=== PATIENT | female | born 1940 | race Caucasian/White ===

== ENCOUNTER → 2016-07-11 | Outpatient (CLI) | payer MEDICARE ==
[~2016-07-11] MED LIST: BIOT1CAP2 PO; ESTR0.5T PO; GLUC1CAP16 PO; HYDR-3516 PO; MULT1TAB84 PO; OMEP20TA PO; OXYC1TAB35 PO; VITA10002 PO
[2016-07-11 13:02] LABS: BLOOD, URINE NEG (NEG); GLUCOSE,URINE NEG (NEG); KETONE, URINE NEG (NEG); NITRITE,URINE NEG (NEG); PH, URINE 5.5 (5.0-8.5); SQUAMOUS EPITHELIAL CELL URINE <1 /hpf (0-5); TRANSITIONAL EPI CELLS, URINE <1 /hpf; URINE COLOR LIGHT-YELLOW (YELLW/STRAW)
== END ==
LOC: PLAB 09:55
PROVIDERS: ATTEND Family Medicine
DX: R39.9 Unspecified symptoms and signs involving the genitourinary system (principal)
CPT/HCPCS: 81001; 87086

== ENCOUNTER 2016-07-18 20:41 | Inpatient (IN) | payer MEDICARE ==
[~2016-07-18] VITALS: Ht 157.5 cm; Wt 57.7 kg
[2016-07-18 20:53] VITALS: BP 135/73; PULSE 94; RESP 20; TEMP 97.2; O2SAT 97
[2016-07-18] MEDS ORDERED: HYDR-3516 PO (22:28)
[2016-07-18] MEDS ORDERED: OMEP20TA PO (22:28)
[2016-07-18] MEDS ORDERED: GLUC1CAP16 PO (22:32)
[2016-07-18] MEDS ORDERED: BIOT1CAP2 PO (22:32)
[2016-07-18] MEDS ORDERED: ESTR0.5T PO (22:32)
[2016-07-18] MEDS ORDERED: VITA10002 PO (22:32)
[2016-07-18] MEDS ORDERED: MULT1TAB84 PO (22:32)
[2016-07-18] MEDS ORDERED: SODIUM CHLOR 0.9% 1000 ML INJ 1,000 ML IV SCH (23:33)
--- NOTE | 2016-07-18 23:43 | PD ---
HPI Chief Complaint: Complaint Time Seen by Provider: 23:33 Travel History International Travel<30 days: No Contact w/Intl Traveler<30days: No Traveled to known affect area: No History of Present Illness HPI 75-year-old female presents to the emergency department for complaint of increasing left lower quadrant abdominal pain and flank pain. Patient has had intermittent symptoms 2 weeks. Patient has been seen by her primary care physician and had urinalysis performed and been on antibiotic twice. Patient has had a CAT scan that did not show evidence of kidney stone. Patient has prior history of kidney stones and says symptoms are similar. Patient's had endoscopy in the past without evidence by colonoscopy of diverticular disease. Patient denies fever or chills. Patient has had burning with urination for urination and painful urination. Patient denies any respiratory illness symptoms no chest pain no shortness of breath. No report of fall or injury. Previous hysterectomy. Patient denies other surgeries. Patient rates pain 8/ 10 in intensity. Patient is unable to identify exacerbating or alleviating factors. No lower extremity numbness tingling or weakness; no bladder or bowel dysfunction; and no saddle anesthesia. PFSH Past Medical History Narrative Medical Anemia arthritis melanoma kidney stone hysterectomy peptic ulcer disease no tobacco use no alcohol use nursing notes reviewed Anemia: Yes (GESTATIONAL) Arthritis: Yes Blood Disorders: No Cancer: Yes (SKIN: MELANOMA TWICE) Cardiovascular Problems: No Endocrine: No GERD: Yes Immune Disorder: No Kidney Stones: Yes Musculoskeletal: No Neurologic: No Psychiatric: No Reproductive: Yes Respiratory: No Ulcer: Yes (GASTRIC) Tetanus Vaccination: > 5 Years Influenza Vaccination: Yes ?: Not Menopausal: Yes : 2 Para: 2 Past Surgical History Abdominal Surgery: No AICD: No Arteriovenous Shunt: No Cardiac Surgery: No Endocrine Surgery: No Eye Surgery: Yes (BILATERAL CATARACT) Genitourinary Surgery: No Gynecologic Surgery: Yes (HYSTERECTOMY: 1990) Hysterectomy: Yes Insulin Pump: No Joint Replacement: No Oral Surgery: No Pacemaker: No Thoracic Surgery: No Social History Alcohol Use: No Tobacco Use: No Substance Use: No Allergies-Medications (Allergen,Severity, Reaction): Coded Allergies: Diflucan (Verified Allergy, Unknown, 01/24/07) Sulfa (Verified Allergy, Unknown, ULCERS IN MOUTH, 07/18/16) Reported Meds & Prescriptions Reported Meds & Active Scripts Active Reported Multivitamin Adults (Multiple Vitamins W/ Minerals) 1 Tab 1 Tab PO DAILY Glucosamine Chondroitin (Sfcnwllpqan-Cavgdcubipg-Njf C-) 1 Cap Cap 1 Cap PO DAILY Biotin 1 Mg Cap 1 Mg PO DAILY PRN Vitamin B-12 (Cyanocobalamin) 1,000 Mcg Tab 1,000 Mcg PO DAILY Estradiol 0.5 Mg Tab 0.5 Mg PO DAILY Omeprazole 20 Mg Tab 20 Mg PO DAILY Hydrocodone-Acetaminophen 5-325 mg Tab 1 Tab PO Q4H PRN Review of Systems Except as stated in HPI: all other systems reviewed are Neg General / Constitutional: No: Fever, Chills HENT: No: Congestion Cardiovascular: No: Chest Pain or Discomfort Respiratory: No: Shortness of Breath Gastrointestinal: Positive: Abdominal Pain, No: Vomiting Genitourinary: Positive: Dysuria, Flank Pain Musculoskeletal: No: Myalgias, Arthralgias Skin: No Rash Neurologic: No: Weakness, Dizziness Psychiatric: No: Anxiety Endocrine: No: Polyuria Hematologic/Lymphatic: No: Lymph Node Enlargement Physical Exam Narrative GENERAL: Well-developed well-nourished female in no acute distress no respiratory distress SKIN: Warm and dry. HEAD: Normocephalic. EYES: No scleral icterus. No injection or drainage. NECK: Supple, trachea midline. No JVD or lymphadenopathy. CARDIOVASCULAR: Regular rate and rhythm without murmurs, gallops, or rubs. RESPIRATORY: Breath sounds equal bilaterally. No accessory muscle use. GASTROINTESTINAL: Abdomen soft, diffusely tender left upper quadrant left lower quadrant without guarding or rebound, nondistended. MUSCULOSKELETAL: No cyanosis, or edema. BACK: Nontender without obvious deformity. Left-sided CVA tenderness. No point tenderness along the thoracic or lumbar spine. Negative straight-leg raising. Deep tendon reflexes 2+ and equal bilateral lower extremities without clonus. Sensory exam grossly intact. Motor strength 5 over 5. Data Data Last Documented VS Vital Signs Date Time Temp Pulse Resp B/P Pulse Ox O2 Delivery O2 Flow Rate FiO2 07/19/16 03:14 78 16 96 Room Air 07/19/16 01:18 142/60 07/18/16 20:53 97.2 Orders Complete Blood Count With Diff (07/18/16 23:33) Comprehensive Metabolic Panel (07/18/16 23:33) Lipase (07/18/16 23:33) Lactic Acid (07/18/16 23:33) Urinalysis - C+S If Indicated (07/18/16 23:33) Iv Access Insert/Monitor (07/18/16 23:33) Ecg Monitoring (07/18/16 23:33) Oximetry (07/18/16 23:33) Morphine Inj (Morphine Inj) (07/18/16 23:45) Ondansetron Inj (Zofran Inj) (07/18/16 23:45) Sodium Chlor 0.9% 1000 Ml Inj (Ns 1000 M (07/18/16 23:33) Sodium Chloride 0.9% Flush (Ns Flush) (07/18/16 23:45) Urine Culture (07/18/16 23:50) Hydromorphone Pf Inj (Dilaudid Pf Inj) (07/19/16 01:15) Ondansetron Inj (Zofran Inj) (07/19/16 01:15) Ct Abd/Pel W Iv Contrast(Rout) (07/19/16 ) Iohexol 350 Inj (Omnipaque 350 Inj) (07/19/16 01:51) Ketorolac Inj (Toradol Inj) (07/19/16 03:00) Hydromorphone Pf Inj (Dilaudid Pf Inj) (07/19/16 03:00) Ceftriaxone Inj (Rocephin Inj) (07/19/16 03:00) Ondansetron Inj (Zofran Inj) (07/19/16 03:00) Admit To Inpatient (07/19/16 ) Vital Signs (Adult) Q4H (07/19/16 04:05) Activity Oob With Assistance (07/19/16 04:05) Media Liaison Officer / Telemetry .CONTINUOUS (07/19/16 04:05) Diet Npo (07/19/16 Breakfast) Sodium Chloride 0.9% Flush (Ns Flush) (07/19/16 04:15) Sodium Chloride 0.9% Flush (Ns Flush) (07/19/16 09:00) Basic Metabolic Panel (Bmp) (07/20/16 06:00) Complete Blood Count With Diff (07/20/16 06:00) Pt Request For Service (07/19/16 04:05) Case Management Consult (07/19/16 04:05) Scd Bilateral/Knee High NICHO.BID (07/19/16 04:05) Naloxone Inj (Narcan Inj) (07/19/16 04:15) Inpatient Certification (07/19/16 ) Hydromorphone Pf Inj (Dilaudid Pf Inj) (07/19/16 04:15) Levofloxacin 750 Mg Premix Inj (Levaquin (07/19/16 09:00) Admit Order (Ed Use Only) (07/19/16 ) ^ Saline Lock (07/19/16 04:11) Resp Oxygen Tray C Titrat 1-4 L (07/19/16 ) ^ Notify Dr: Other (07/19/16 04:11) Sodium Chloride 0.9% Flush (Ns Flush) (07/19/16 09:00) Sodium Chloride 0.9% Flush (Ns Flush) (07/19/16 04:15) ^ Notify Upon Admission (07/19/16 04:11) Consult Urology (07/19/16 ) Labs Laboratory Tests Test 07/18/16 07/18/16 23:40 23:50 White Blood Count 14.7 TH/MM3 Red Blood Count 4.17 MIL/MM3 Hemoglobin 12.6 GM/DL Hematocrit 37.0 % Mean Corpuscular Volume 89.0 FL Mean Corpuscular Hemoglobin 30.3 PG Mean Corpuscular Hemoglobin 34.1 % Concent Red Cell Distribution Width 12.1 % Platelet Count 196 TH/MM3 Mean Platelet Volume 9.2 FL Neutrophils (%) (Auto) 86.0 % Lymphocytes (%) (Auto) 6.1 % Monocytes (%) (Auto) 4.0 % Eosinophils (%) (Auto) 0.6 % Basophils (%) (Auto) 3.3 % Neutrophils # (Auto) 12.6 TH/MM3 Lymphocytes # (Auto) 0.9 TH/MM3 Monocytes # (Auto) 0.6 TH/MM3 Eosinophils # (Auto) 0.1 TH/MM3 Basophils # (Auto) 0.5 TH/MM3 CBC Comment DIFF FINAL Differential Comment Sodium Level 141 MEQ/L Potassium Level 3.6 MEQ/L Chloride Level 106 MEQ/L Carbon Dioxide Level 25.2 MEQ/L Anion Gap 10 MEQ/L Blood Urea Nitrogen 19 MG/DL Creatinine 0.97 MG/DL Estimat Glomerular Filtration 56 ML/MIN Rate Random Glucose 123 MG/DL Lactic Acid Level 1.2 mmol/L Calcium Level 8.6 MG/DL Total Bilirubin 0.6 MG/DL Aspartate Amino Transf 19 U/L (AST/SGOT) Alanine Aminotransferase 18 U/L (ALT/SGPT) Alkaline Phosphatase 73 U/L Total Protein 7.2 GM/DL Albumin 3.8 GM/DL Lipase 102 U/L Urine Collection Type CLEAN CATCH Urine Color YELLOW Urine Turbidity CLEAR Urine pH 6.0 Urine Specific [place] 1.023 Urine Protein NEG mg/dL Urine Glucose (UA) NEG mg/dL Urine Ketones 40 mg/dL Urine Occult Blood TRACE Urine Nitrite NEG Urine Bilirubin NEG Urine Leukocyte Esterase TRACE Urine WBC 15-19 /hpf Urine WBC Clumps OCC Urine Squamous Epithelial 0-5 /hpf Cells Urine Hyaline Casts 0-2 /lpf Urine Mucus FEW /lpf Microscopic Urinalysis Comment CULTURE INDICATED MDM Medical Decision Making Medical Screen Exam Complete: Yes Emergency Medical Condition: Yes Medical Record Reviewed: Yes Interpretation(s) CBC & BMP Diagram 07/18/16 23:40 Last Impressions Abdomen/Pelvis CT 07/19/16 0000 Signed Impressions: Service Date/Time: Tuesday, July 19, 2016 01:33 - CONCLUSION: 1. Left sided hydronephrosis, perinephric fluid and hydroureter secondary to an obstructing calculus at the left ureterovesical junction. 2. Atherosclerosis. 3. Indeterminate low-density lesion in the right lobe of the liver, likely a hemangioma. This can be further evaluated on a nonemergent outpatient basis with MRI of the abdomen. Josef Kothari MD UA: positive leuk esterase and wbc's Differential Diagnosis Flank pain UTI pyelonephritis renal colic diverticulitis colitis ischemic colitis musculoskeletal pain Narrative Course IV access obtained specimens collected and sent for resulting Urinalysis with white blood cells patient recently being treated for urinary tract infection with outpatient antibiotic; patient administered iv rocephin x 1 dose; no fever no chills CT abdomen and pelvis ordered in view of leukocytosis along with persistent left lower quadrant and flank pain to evaluate between colitis diverticulitis and obstructive uropathy also evaluate for pyelonephritis Patient identified to have an 8 millimeter distal ureteral stone with hydronephrosis and hydroureter; plan to admit patient for management of intractable pain with obstructive uropathy --- case discussed with on-call urology --- patient will require admission with recommendation for transfer to [facility] as may require procedural intervention. Patient has received IV antibiotics IV pain medication and medicine for nausea vomiting. Patient's case discussed with on-call medicine for admission and will accept to [facility] with urology consult. patient aware of plan and agreeable with transfer Physician Communication Physician Communication discussed with [facility] MD and transmission rebuilder urology Diagnosis Primary Impression: Ureterolithiasis Additional Impressions: Hydronephrosis Qualified Code: N13.2 - Hydronephrosis with urinary obstruction due to renal calculus UTI (urinary tract infection) Admitting Information Admitting Physician Requests: Admit Jacinta Gimenez MD Jul 18, 2016 23:43
[2016-07-18] MEDS ORDERED: SODIUM CHLORIDE 0.9% FLUSH 5 ML FLUSH IVF PRN (23:45)
[2016-07-18] MEDS ORDERED: ONDANSETRON HCL 4 MG/2 ML VIAL IVP ONE (23:45)
[2016-07-18] MEDS ORDERED: MORPHINE SULFATE 4 MG/ML INJ IV PUSH ONE (23:45)
[2016-07-19] VITALS (9 sets, daily range): BP systolic 106–144; BP diastolic 55–64; PULSE 57–84; RESP 16–18; TEMP 97.6–99; O2SAT 96–99
[2016-07-19 00:01] LABS: AUTOMATED NEUTROPHIL # 12.6 TH/MM3 (1.8-7.7); BASOPHIL # 0.5 TH/MM3 (0-0.2); BASOPHIL % 3.3 % (0.0-2.0); EOSINOPHIL # 0.1 TH/MM3 (0-0.4); EOSINOPHIL % 0.6 % (0.0-4.0); LYMPH % 6.1 % (9.0-44.0); LYMPHOCYTE # 0.9 TH/MM3 (1.0-4.8); MEAN CORPUSCULAR HEMOGLOBIN 30.3 PG (27.0-34.0); MEAN CORPUSCULAR HGB CONC 34.1 % (32.0-36.0); PLATELET COUNT 196 TH/MM3 (150-450); RED BLOOD COUNT 4.17 MIL/MM3 (4.00-5.30); RED CELL DISTRIBUTION WIDTH 12.1 % (11.6-17.2); WHITE BLOOD COUNT 14.7 TH/MM3 (4.0-11.0)
[2016-07-19 00:03] LABS: HEMO FLAGS DIFF FINAL
[2016-07-19 00:10] LABS: CHLORIDE 106 MEQ/L (98-107); POTASSIUM 3.6 MEQ/L (3.5-5.1); SODIUM (NA) 141 MEQ/L (136-145)
[2016-07-19 00:13] LABS: ANION GAP 10 MEQ/L (5-15); BICARBONATE 25.2 MEQ/L (21.0-32.0)
[2016-07-19 00:13] LABS: BLOOD, URINE TRACE (NEG); GLUCOSE,URINE NEG (NEG); KETONE, URINE 40 mg/dL (NEG); NITRITE,URINE NEG (NEG)
[2016-07-19 00:14] LABS: BLOOD UREA NITROGEN 19 MG/DL (7-18)
[2016-07-19 00:16] LABS: ALT (GPT) 18 U/L (10-53); AST (GOT) 19 U/L (15-37)
[2016-07-19 00:17] LABS: GLOMERULAR FILTRATION RATE 56 ML/MIN (>89)
[2016-07-19 00:18] LABS: TOTAL BILIRUBIN ADULT 0.6 MG/DL (0.2-1.0)
[2016-07-19 00:19] LABS: ALKALINE PHOSPHATASE 73 U/L (45-117)
[2016-07-19 00:32] LABS: HYALINE CAST, URINE 0-2 /lpf (RARE); METHOD OF COLLECTION CLEAN CATCH; MUCUS URINE FEW /lpf (OCC); URINE COLOR YELLOW (YELLW/STRAW)
[2016-07-19 00:33] LABS: SQUAMOUS EPITHELIAL CELL URINE 0-5 /hpf (0-5); WBC, URINE 15-19 /hpf (0-5)
[2016-07-19 00:34] LABS: COMMENT (UR) CULTURE INDICATED; CULTURE IF INDICATED CULTURE INDICATED
[2016-07-19] MEDS ORDERED: ONDANSETRON HCL 4 MG/2 ML VIAL IV PUSH ONE ×3 (01:15→12:00)
[2016-07-19] MEDS ORDERED: HYDROmorphone HCL PF 1 MG/ML VIAL IV PUSH ONE ×2 (01:15→03:00)
[2016-07-19] MEDS ORDERED: IOHEXOL 350 MG/ML 10 ML VIAL (for RAD DIAG) IV ONE (01:51)
--- NOTE | 2016-07-19 02:00 | RADHPO ---
EXAM DATE/TIME: 07/19/2016 01:33 [place] COMPARISON: No previous studies available for comparison. INDICATIONS : Left lower quadrant and flank pain for two weeks. IV CONTRAST: 75 cc Omnipaque 350 (iohexol) IV ORAL CONTRAST: No oral contrast ingested. RADIATION DOSE: 5.99 CTDIvol (mGy) MEDICAL HISTORY : Gastroesophageal reflux disease. SURGICAL HISTORY : Hysterectomy. ENCOUNTER: Initial ACUITY: 2 weeks PAIN SCALE: 6/10 LOCATION: Left lower quadrant flank TECHNIQUE: Volumetric scanning of the abdomen and pelvis was performed. Using automated exposure control and ad justment of the mA and/or kV according to patient size, radiation dose was kept as low as reasonably achievable to obtain optimal diagnostic quality images. FINDINGS: There is an indeterminate low density mass in the right lobe of the liver measuring 1.8 cm. Gallbladd er, spleen, pancreas, bilateral adrenal glands, right kidney are unremarkable. Gallbladder unremarkab le. There is perinephric fluid on the left, mild decreased enhancement of the left kidney relative to the right and moderate hydronephrosis and hydroureter identified. There is a calculus at the left ur eterovesical junction measuring 8.1 mm. There is no evidence for bowel obstruction. Stomach unremarka ble. Atherosclerotic calcifications of the aorta and iliac vessels are seen. Lung bases are clear. Os seous structures are intact. CONCLUSION: 1. Left sided hydronephrosis, perinephric fluid and hydroureter secondary to an obstructing calculus at the left ureterovesical junction. 2. Atherosclerosis. 3. Indeterminate low-density lesion in the right lobe of the liver, likely a hemangioma. This can be further evaluated on a nonemergent outpatient basis with MRI of the abdomen. Josef Kothari MD on July 19, 2016 at 1:56 Board Certified Radiologist. This report was verified electronically.
[2016-07-19] MEDS ORDERED: cefTRIAXone INJ 1,000 MG in SODIUM CHLORIDE 0.9% INJ 100 ML IV ONE (03:00)
[2016-07-19] MEDS ORDERED: KETOROLAC TROMETHAMINE 30 MG/ML (IVP) VIAL IV PUSH ONE (03:00)
[2016-07-19] MEDS ORDERED: SODIUM CHLORIDE 0.9% FLUSH 5 ML FLUSH IVF PRN (04:15)
[2016-07-19] MEDS ORDERED: SODIUM CHLORIDE 0.9% FLUSH 5 ML FLUSH FLUSH PRN (04:15)
[2016-07-19] MEDS ORDERED: NALOXONE HCL 0.4 MG/ML AMP IV PRN (04:15)
[2016-07-19] MEDS: LEVOFLOXACIN 750 MG PREMIX INJ 150 ML IV SCH (08:52)
[2016-07-19] MEDS: SODIUM CHLORIDE 0.9% FLUSH 5 ML FLUSH FLUSH SCH ×2 (08:53→20:45)
[2016-07-19] MEDS ORDERED: SODIUM CHLORIDE 0.9% FLUSH 5 ML FLUSH IVF SCH (09:00)
[2016-07-19] MEDS: SODIUM CHLOR 0.9% 1000 ML INJ 1,000 ML IV SCH ×2 (10:37→20:45)
[2016-07-19] MEDS ORDERED: PROPOFOL 200 MG/20 ML AMP IV ONE (12:00)
[2016-07-19] MEDS ORDERED: LACTATED RINGER'S 1000 ML INJ 1,000 ML IV ONE (12:00)
[2016-07-19] MEDS ORDERED: ePHEDrine/NS 25 MG/5 ML SYR IV ONE (12:00)
[2016-07-19] MEDS: HYDROmorphone HCL PF 1 MG/ML VIAL IV PUSH PRN (13:26)
[2016-07-19] MEDS ORDERED: INSULIN HUMAN REGULAR 1,000 UNITS/10 ML VIAL SQ PRN (15:45)
[2016-07-19] MEDS: SODIUM CHLORID 0.9% 500 ML IV SCH (15:45)
[2016-07-19] MEDS ORDERED: METOPROLOL TARTRATE 25 MG TAB PO PRN (15:45)
[2016-07-19] MEDS ORDERED: LACTATED RINGER'S 1000 ML IV SCH (15:45)
--- NOTE | 2016-07-19 16:23 | EKG ---
Date Performed: 07/19/2016 Time Performed: 16:13:34 PTAGE: 75 years EKG: Sinus rhythm WITH FREQUENT SUPRAVENTRICULAR PREMATURE COMPLEXES ABNORMAL RHYTHM ECG COMPARED TO PRIOR ELECTROCARD IOGRAM, Premature atrial contractions are present. PREVIOUS TRACING : 01/28/2007 08.50 DOCTOR: Chano Youngblood Interpretating Date/Time 07/19/2016 16:22:05
--- NOTE | 2016-07-19 19:18 | PD.CONS ---
HPI Service Urology Consult Requested By Reason for Consult Nephrolithiasis Primary Care Physician Kevin Luciano MD Diagnosis: History of Present Illness 75yo female with history of nephrolithiasis now admitted for a left distal ureteral stone resulting in obstruction and signifcant flank pain. Patient reports her pain began yesterday with severe left flank pain. No fevers. She has had stoned in the past, but passed without intervention. Denies fevers. Review of Systems ROS Limitations: Clinical Condition Constitutional: DENIES: Fever Eyes: DENIES: Vision loss Ears, nose, mouth, throat: DENIES: Hearing loss Respiratory: DENIES: Cough Cardiovascular: DENIES: Chest pain Gastrointestinal: DENIES: Abdominal pain Genitourinary: DENIES: Hematuria Musculoskeletal: COMPLAINS OF: Back pain Integumentary: DENIES: Abnormal pigmentation Neurologic: DENIES: Headache Psychiatric: DENIES: Anxiety Past Family Social History Past Medical History Nephrolithiasis Past Surgical History No known past surgical history Reported Medications Reported Meds & Active Scripts Active Reported Multivitamin Adults (Multiple Vitamins W/ Minerals) 1 Tab 1 Tab PO DAILY Glucosamine Chondroitin (Dfmedoqecjm-Wyhpurqfjzi-Auh C-) 1 Cap Cap 1 Cap PO DAILY Biotin 1 Mg Cap 1 Mg PO DAILY PRN Vitamin B-12 (Cyanocobalamin) 1,000 Mcg Tab 1,000 Mcg PO DAILY Estradiol 0.5 Mg Tab 0.5 Mg PO DAILY Omeprazole 20 Mg Tab 20 Mg PO DAILY Hydrocodone-Acetaminophen 5-325 mg Tab 1 Tab PO Q4H PRN Allergies: Coded Allergies: Diflucan (Verified Allergy, Unknown, 01/24/07) Sulfa (Verified Allergy, Unknown, ULCERS IN MOUTH, 07/18/16) Active Ordered Medications Current Medications Medications (Trade) Dose Ordered Sig/Angelica Route Start Time Stop Time Status Last Admin (NS Flush) 2 ml UNSCH PRN FLUSH 07/19/16 04:15 (NS Flush) 2 ml BID FLUSH 07/19/16 09:00 07/19/16 08:53 (Narcan Inj) 0.4 mg UNSCH PRN IV 07/19/16 04:15 Hydromorphone HCl 0.5 mg 0.5 mg Q4H PRN IV PUSH 07/19/16 04:15 07/19/16 13:26 Levofloxacin/ Dextrose 150 ml @ 100 mls/hr Q24H IV 07/19/16 09:00 07/19/16 08:52 Sodium Chloride 1,000 ml @ 100 mls/hr Q10H IV 07/19/16 10:15 07/19/16 10:37 Lactated Ringer's 1,000 ml @ 30 mls/hr Q24H IV 07/19/16 15:45 07/19/16 15:30 (NS 500 ml Inj) 500 ml @ 30 mls/hr [id number] IV 07/19/16 15:45 07/20/16 15:44 Family History Family history reviewed an noncontributory to present illness Social History NO Tobacco use No ETOH Physical Exam Vital Signs Vital Signs Date Time Temp Pulse Resp B/P Pulse Ox O2 Delivery O2 Flow Rate FiO2 07/19/16 18:30 99.0 60 18 136/62 96 07/19/16 15:18 98.1 54 16 118/53 97 07/19/16 14:00 14 07/19/16 11:30 57 16 126/56 99 07/19/16 07:42 97.6 62 16 106/55 97 07/19/16 06:00 96 21 07/19/16 04:59 75 16 128/63 96 Room Air 07/19/16 03:14 78 16 96 Room Air 07/19/16 01:18 80 16 142/60 97 Room Air 07/19/16 00:08 83 18 144/64 98 Room Air 07/18/16 20:53 97.2 94 20 135/73 97 Physical Exam GENERAL: This is a well-nourished, well-developed patient, in no apparent distress. SKIN: No rashes, ecchymoses or lesions. Cool and dry. HEAD: Atraumatic. Normocephalic. EYES: Extraocular motions intact. No scleral icterus. No injection or drainage. ENT: Nose without bleeding, purulent drainage. Airway patent. NECK: Trachea midline. CARDIOVASCULAR: Extremities well perfused, normal pulse RESPIRATORY: nonlabored, equal chest rise GASTROINTESTINAL: Abdomen soft, non-tender, nondistended. Mild left flank pain MUSCULOSKELETAL: Extremities without clubbing, cyanosis, or edema. NEUROLOGICAL: Awake and alert. Motor and sensory grossly within normal limits. Normal speech. Laboratory Laboratory Tests Test 07/18/16 07/18/16 23:40 23:50 White Blood Count 14.7 Red Blood Count 4.17 Hemoglobin 12.6 Hematocrit 37.0 Mean Corpuscular Volume 89.0 Mean Corpuscular Hemoglobin 30.3 Mean Corpuscular Hemoglobin 34.1 Concent Red Cell Distribution Width 12.1 Platelet Count 196 Mean Platelet Volume 9.2 Neutrophils (%) (Auto) 86.0 Lymphocytes (%) (Auto) 6.1 Monocytes (%) (Auto) 4.0 Eosinophils (%) (Auto) 0.6 Basophils (%) (Auto) 3.3 Neutrophils # (Auto) 12.6 Lymphocytes # (Auto) 0.9 Monocytes # (Auto) 0.6 Eosinophils # (Auto) 0.1 Basophils # (Auto) 0.5 CBC Comment DIFF FINAL Differential Comment Sodium Level 141 Potassium Level 3.6 Chloride Level 106 Carbon Dioxide Level 25.2 Anion Gap 10 Blood Urea Nitrogen 19 Creatinine 0.97 Estimat Glomerular Filtration 56 Rate Random Glucose 123 Lactic Acid Level 1.2 Calcium Level 8.6 Total Bilirubin 0.6 Aspartate Amino Transf 19 (AST/SGOT) Alanine Aminotransferase 18 (ALT/SGPT) Alkaline Phosphatase 73 Total Protein 7.2 Albumin 3.8 Lipase 102 Urine Collection Type CLEAN CATCH Urine Color YELLOW Urine Turbidity CLEAR Urine pH 6.0 Urine Specific [place] 1.023 Urine Protein NEG Urine Glucose (UA) NEG Urine Ketones 40 Urine Occult Blood TRACE Urine Nitrite NEG Urine Bilirubin NEG Urine Leukocyte Esterase TRACE Urine WBC 15-19 Urine WBC Clumps OCC Urine Squamous Epithelial 0-5 Cells Urine Hyaline Casts 0-2 Urine Mucus FEW Microscopic Urinalysis Comment CULTURE INDICATED Date/Time Procedure Status Source Growth 07/18/16 23:50 Urine Culture - Preliminary Resulted Urine Clean Catch NO GROWTH IN 24 HOURS. Result Diagram: 07/18/16 2340 07/18/16 2340 Imaging Last 48 hours Impressions Abdomen/Pelvis CT 07/19/16 0000 Signed Impressions: Service Date/Time: Tuesday, July 19, 2016 01:33 - CONCLUSION: 1. Left sided hydronephrosis, perinephric fluid and hydroureter secondary to an obstructing calculus at the left ureterovesical junction. 2. Atherosclerosis. 3. Indeterminate low-density lesion in the right lobe of the liver, likely a hemangioma. This can be further evaluated on a nonemergent outpatient basis with MRI of the abdomen. Josef Kothari MD Assessment and Plan Problem List: (1) Ureterolithiasis ICD Code: N20.1 Status: Acute (2) Hydronephrosis ICD Code: N13.30 Status: Acute Assessment and Plan -Left obstrucitng distal ureteral stone -To the OR for left ureteral stent placement Problem Qualifiers (1) Hydronephrosis: Qualified Code: N13.2 - Hydronephrosis with urinary obstruction due to renal calculus Trace Bolton MD Jul 19, 2016 19:18
[2016-07-19] MEDS ORDERED: ceFAZolin INJ 1,000 MG VIAL IV ONE (19:31)
[2016-07-19] MEDS ORDERED: IOHEXOL 300 MG/ML 50 ML BTL (for RAD DIAG) ONE (19:33)
--- NOTE | 2016-07-19 20:08 | HHI.PR ---
Subjective Remarks Difficult left ureteral stent placement. Successful placement of a 6x24 JJ left ureteral stent. Stent is to remain in place until Urology follow-up in 1-2 weeks for definitive stone management. Patient is clear for discharge from urology standpoint when stable from medical perspective. Objective Vital Signs Vital Signs Date Time Temp Pulse Resp B/P Pulse Ox O2 Delivery O2 Flow Rate FiO2 07/19/16 18:30 99.0 60 18 136/62 96 07/19/16 15:18 98.1 54 16 118/53 97 07/19/16 14:00 14 07/19/16 11:30 57 16 126/56 99 07/19/16 07:42 97.6 62 16 106/55 97 07/19/16 06:00 96 21 07/19/16 04:59 75 16 128/63 96 Room Air 07/19/16 03:14 78 16 96 Room Air 07/19/16 01:18 80 16 142/60 97 Room Air 07/19/16 00:08 83 18 144/64 98 Room Air 07/18/16 20:53 97.2 94 20 135/73 97 I/O 07/18/16 07/18/16 07/18/16 07/19/16 07/19/16 07/19/16 07:00 15:00 23:00 07:00 15:00 23:00 Intake Total 100 ml 1150 ml 250 ml Output Total 250 ml 1200 ml Balance -150 ml -50 ml 250 ml Intake IV Total 100 ml 1150 ml 250 ml Output Urine Total 250 ml 1200 ml # Voids 2 2 Result Diagram: 07/18/16 2340 07/18/16 2340 Imaging Last 48 hours Impressions Abdomen/Pelvis CT 07/19/16 0000 Signed Impressions: Service Date/Time: Tuesday, July 19, 2016 01:33 - CONCLUSION: 1. Left sided hydronephrosis, perinephric fluid and hydroureter secondary to an obstructing calculus at the left ureterovesical junction. 2. Atherosclerosis. 3. Indeterminate low-density lesion in the right lobe of the liver, likely a hemangioma. This can be further evaluated on a nonemergent outpatient basis with MRI of the abdomen. Josef Kothari MD Assessment and Plan Problem List: (1) Ureterolithiasis ICD Code: N20.1 Status: Acute (2) Hydronephrosis ICD Code: N13.30 Status: Acute Assessment and Plan -Successful left ureteral stent placement -Follow-up with Urology, Che, in 1-2 weeks for definitive stone management -Clear for discharge from Urology standpoint Problem Qualifiers (1) Hydronephrosis: Qualified Code: N13.2 - Hydronephrosis with urinary obstruction due to renal calculus Trace Bolton MD Jul 19, 2016 20:07
[2016-07-19] MEDS ORDERED: DO NOT ADM ANY ANTICOAGULANT DRUGS XX PRN (21:00)
[2016-07-20 04:36] VITALS: BP 115/55; PULSE 69; RESP 18; TEMP 98; O2SAT 96
[2016-07-20] MEDS: SODIUM CHLOR 0.9% 1000 ML INJ 1,000 ML IV SCH ×2 (05:23→07:46)
[2016-07-20 06:25] LABS: BASOPHIL % 0.1 % (0.0-2.0); EOSINOPHIL % 0.1 % (0.0-4.0); HEMATOCRIT 33.2 % (35.0-46.0); HEMO FLAGS DIFF FINAL; LYMPH % 10.1 % (9.0-44.0); LYMPHOCYTE # 0.7 TH/MM3 (1.0-4.8); MEAN CELL VOLUME 90.2 FL (80.0-100.0); MEAN CORPUSCULAR HEMOGLOBIN 30.7 PG (27.0-34.0); MONO % 3.1 % (0.0-8.0); NEUT % 86.6 % (16.0-70.0); PLATELET COUNT 167 TH/MM3 (150-450); RED BLOOD COUNT 3.68 MIL/MM3 (4.00-5.30); RED CELL DISTRIBUTION WIDTH 12.8 % (11.6-17.2); WHITE BLOOD COUNT 6.9 TH/MM3 (4.0-11.0)
[2016-07-20 06:47] LABS: BICARBONATE 23.6 MEQ/L (21.0-32.0); POTASSIUM 3.4 MEQ/L (3.5-5.1)
[2016-07-20] MEDS: LEVOFLOXACIN 750 MG PREMIX INJ 150 ML IV SCH (07:45)
[2016-07-20 08:00] VITALS: BP 148/63; PULSE 56; RESP 18; TEMP 98; O2SAT 96
[2016-07-20] MEDS: HYDROmorphone HCL PF 1 MG/ML VIAL IV PUSH PRN (08:14)
[2016-07-20 08:20] VITALS: PULSE 65
[2016-07-20] MEDS: SODIUM CHLORID 0.9% 500 ML IV SCH (08:25)
--- NOTE | 2016-07-20 08:43 | HHI.HP ---
[facility] Service [place] [facility] Primary Care Physician Kevin Luciano MD Admission Diagnosis Intractable pain; 8mm ureterolithiasis w/obstruction Diagnoses: Chief Complaint: Abdominal pain Travel History International Travel<30 Days: No Contact w/Intl Traveler <30 Da: No Traveled to Known Affected Are: No History of Present Illness 75-year-old female with a history of kidney stones who presented to the emergency room with complaint of left lower quadrant and left flank pain. Patient reports the symptom has been present for about 2-3 weeks but became worse over the past couple of days which prompted the visit to emergency room. She described the pain as the worse pain she's ever had. She has been having some dysuria as well but denies hematuria. Workup in the emergency room revealed an obstructing stone and left-sided hydronephrosis. The patient was admitted for urological intervention. She denied any fevers or chills. Review of Systems Constitutional: DENIES: Fever, Chills Gastrointestinal: COMPLAINS OF: Abdominal pain Genitourinary: COMPLAINS OF: Dysuria, DENIES: Hematuria Other All other systems reviewed and are negative. Past Family Social History Past Medical History Previous kidney stone GERD Osteoarthritis Melanoma status post resection. Past Surgical History Hysterectomy Reported Medications Reported Meds & Active Scripts Active Oxycodone-Acetaminophen 7.5-325 mg Tab 1 Tab PO Q4H PRN Reported Multivitamin Adults (Multiple Vitamins W/ Minerals) 1 Tab 1 Tab PO DAILY Glucosamine Chondroitin (Ypoeumcbfqi-Wtilqluahrg-Nxd C-) 1 Cap Cap 1 Cap PO DAILY Biotin 1 Mg Cap 1 Mg PO DAILY PRN Vitamin B-12 (Cyanocobalamin) 1,000 Mcg Tab 1,000 Mcg PO DAILY Estradiol 0.5 Mg Tab 0.5 Mg PO DAILY Omeprazole 20 Mg Tab 20 Mg PO DAILY Allergies: Coded Allergies: Diflucan (Verified Allergy, Unknown, 01/24/07) Sulfa (Verified Allergy, Unknown, ULCERS IN MOUTH, 07/18/16) Family History Reviewed and noncontributory. Physical Exam Vital Signs Vital Signs Date Time Temp Pulse Resp B/P Pulse Ox O2 Delivery O2 Flow Rate FiO2 07/20/16 04:36 98.0 69 18 115/55 96 07/19/16 21:00 98.5 83 16 140/60 100 Nasal Cannula 2 07/19/16 20:30 84 15 128/62 100 Nasal Cannula 2 07/19/16 20:11 98.5 96 18 138/78 100 Nasal Cannula 2 07/19/16 20:00 84 07/19/16 20:00 97.8 63 18 130/63 96 07/19/16 18:30 99.0 60 18 136/62 96 07/19/16 15:18 98.1 54 16 118/53 97 07/19/16 14:00 14 07/19/16 11:30 57 16 126/56 99 Physical Exam GENERAL: This is a well-nourished, well-developed patient, in no apparent distress. SKIN: No rashes, ecchymoses or lesions. Cool and dry. HEAD: Atraumatic. Normocephalic. No temporal or scalp tenderness. EYES: Pupils equal round and reactive. Extraocular motions intact. No scleral icterus. No injection or drainage. ENT: Nose without bleeding, purulent drainage or septal hematoma. Throat without erythema, tonsillar hypertrophy or exudate. Uvula midline. Airway patent. NECK: Trachea midline. No JVD or lymphadenopathy. Supple, nontender, no meningeal signs. CARDIOVASCULAR: Regular rate and rhythm without murmurs, gallops, or rubs. RESPIRATORY: Clear to auscultation. Breath sounds equal bilaterally. No wheezes , rales, or rhonchi. GASTROINTESTINAL: Abdomen soft, non-tender, nondistended. No hepato-splenomegaly , or palpable masses. No guarding. MUSCULOSKELETAL: Extremities without clubbing, cyanosis, or edema. No joint tenderness, effusion, or edema noted. No calf tenderness. Negative Homans sign bilaterally. NEUROLOGICAL: Awake and alert. Cranial nerves II through XII intact. Motor and sensory grossly within normal limits. Five out of 5 muscle strength in all muscle groups. Normal speech. Laboratory Laboratory Tests Test 07/20/16 05:01 White Blood Count 6.9 Red Blood Count 3.68 Hemoglobin 11.3 Hematocrit 33.2 Mean Corpuscular Volume 90.2 Mean Corpuscular Hemoglobin 30.7 Mean Corpuscular Hemoglobin 34.0 Concent Red Cell Distribution Width 12.8 Platelet Count 167 Mean Platelet Volume 9.3 Neutrophils (%) (Auto) 86.6 Lymphocytes (%) (Auto) 10.1 Monocytes (%) (Auto) 3.1 Eosinophils (%) (Auto) 0.1 Basophils (%) (Auto) 0.1 Neutrophils # (Auto) 6.0 Lymphocytes # (Auto) 0.7 Monocytes # (Auto) 0.2 Eosinophils # (Auto) 0.0 Basophils # (Auto) 0.0 CBC Comment DIFF FINAL Differential Comment Sodium Level 141 Potassium Level 3.4 Chloride Level 109 Carbon Dioxide Level 23.6 Anion Gap 8 Blood Urea Nitrogen 17 Creatinine 0.79 Estimat Glomerular Filtration 71 Rate Random Glucose 140 Calcium Level 8.2 Date/Time Procedure Status Source Growth 07/18/16 23:50 Urine Culture - Preliminary Resulted Urine Clean Catch NO GROWTH IN 24 HOURS. Result Diagram: 07/20/16 0501 07/20/16 0501 Imaging Last Impressions Abdomen/Pelvis CT 07/19/16 0000 Signed Impressions: Service Date/Time: Tuesday, July 19, 2016 01:33 - CONCLUSION: 1. Left sided hydronephrosis, perinephric fluid and hydroureter secondary to an obstructing calculus at the left ureterovesical junction. 2. Atherosclerosis. 3. Indeterminate low-density lesion in the right lobe of the liver, likely a hemangioma. This can be further evaluated on a nonemergent outpatient basis with MRI of the abdomen. Josef Kothari MD Assessment and Plan Problem List: (1) Ureterolithiasis ICD Code: N20.1 Status: Acute (2) Hydronephrosis ICD Code: N13.30 Status: Acute Assessment and Plan 75-year-old female with ureterolithiasis and hydronephrosis on the left. - The patient is admitted with supportive care including pain control and IV fluid. - Urology was consulted. Physician Certification 2 Midnight Certification Type: Admission for Inpatient Services Order for Inpatient Services The services are ordered in accordance with Medicare regulations or non- Medicare payer requirements, as applicable. In the case of services not specified as inpatient-only, they are appropriately provided as inpatient services in accordance with the 2-midnight benchmark. Estimated LOS (days): 2 days is the estimated time the patient will need to remain in the hospital, assuming treatment plan goals are met and no additional complications. Post-Hospital Plan: Home Problem Qualifiers (1) Hydronephrosis: Qualified Code: N13.2 - Hydronephrosis with urinary obstruction due to renal calculus Fadi Caraballo MD Jul 20, 2016 08:43
[2016-07-20] MEDS: SODIUM CHLORIDE 0.9% FLUSH 5 ML FLUSH FLUSH SCH (09:00)
[2016-07-20 11:18] VITALS: O2SAT 95
[2016-07-20 12:00] VITALS: BP 126/58; PULSE 74; RESP 18; TEMP 99; O2SAT 94
[2016-07-20] MEDS ORDERED: OXYC1TAB35 PO (12:56)
--- NOTE | 2016-07-20 12:57 | HHI.DCPOC ---
Discharge Care Plan Diagnosis: (1) Ureterolithiasis (2) Hydronephrosis Goals to Promote Your Health * To prevent worsening of your condition and complications * To maintain your health at the optimal level Directions to Meet Your Goals Take your medications as prescribed Follow your dietary instruction Follow activity as directed Keep your appointments as scheduled Take your immunizations and boosters as scheduled If your symptoms worsen call your PCP, if no PCP go to Urgent Care Center or Emergency Room Smoking is Dangerous to Your Health. Avoid second hand smoke Call the 24-hour hour crisis hotline for domestic abuse at Fadi Caraballo MD Jul 20, 2016 12:57
[2016-07-20] MEDS ORDERED: oxyCODONE/ACETAMINOPHEN 7.5 MG/325 MG TAB PO PRN (13:00)
--- NOTE | 2016-07-20 14:26 | MP ---
cc: YESSI MUNOZ MD DATE OF SURGERY: 07/19/2016 PREOPERATIVE DIAGNOSIS: Left nephrolithiasis. POSTOPERATIVE DIAGNOSIS: Left nephrolithaisis. SURGEON Yessi Munoz MD OPERATION: 1. Cystoscopy. 2. Left retrograde pyelogram. 3. Interpretation of radiographic images. 4. Left ureteral stent placement 6 x 24 Double-J. PERTINENT FINDINGS 1. Left distal obstructing ureteral stone, difficult to pass the wire beyond. 2. Successful placement of 6 x 24 Double-J ureteral stent on the left. INTERPRETATION OF RADIOGRAPHIC IMAGES 1. Left-sided hydronephrosis noted on retrograde pyelogram. 2. Left filling defect with complete obstruction at the left distal ureter. This was difficult to pass beyond with the wire. HISTORY OF PRESENT ILLNESS Tanya Domingo is a 75-year-old female with significant left flank pain, found to have a left distal ureteral stone approximately 8 mm in size. She presents now for treatment with a left ureteral stent placement. PROCEDURE IN DETAIL After proper informed consent was obtained the patient was brought to the operating room and remained supine on the operating table. The bilateral lower extremity SCDs were then placed. The patient was placed under general anesthesia. The patient was placed in lithotomy position and prepped and draped in standard sterile fashion. After proper timeout was completed rigid cystoscope was inserted to the urethra and to the bladder. Urethra without any abnormalities or lesions identified. Approaching the bladder bilateral ureteral orifices were identified. The remainder of the bladder was inspected and no other abnormalities were noted throughout. At this point attention was turned to the left ureteral orifice. This was noted to be quite small and rather pinpoint. The open-ended ureteral catheter was placed and a guidewire was attempted to be placed through the 5-Mauritian open-ended catheter into the left ureter. However, there was significant resistance noted at the left distal ureter. Multiple attempts were tried and unsuccessful. At this point the glide-wire was then used to be passed into the left ureteral orifice. This too was unable to be passed beyond the obstruction, likely from the stone. The 5-Mauritian open-ended catheter was then slowly advanced into the left distal ureteral orifice with the retrograde pyelogram which identified significant for a filling defect left distal ureter consistent with location of stone. Very little contrast was able to be advanced beyond the stone to the proximal ureter. At this point the glide-wire was then replaced through the 5-Mauritian open-ended catheter and multiple attempts were made in passing the wire above the stone. Eventually this was successful and the wire was passed up into the left renal pelvis. The open-ended catheter was passed over the wire into the left renal pelvis. At this point, retrograde pyelogram again was administered which confirmed position into the left renal pelvis which appeared to be hydronephrotic. At this point the regular guide-wire was then passed through the open ended catheter into the left collecting system. The open-ended catheter was then removed and a 6 x 24 Double-J ureteral stent was then successfully placed in the left collecting system with good curl in the renal pelvis as well as in the bladder and confirmed position with the use of fluoroscopy. At this point the patient's bladder was emptied and the scope was removed. The patient tolerated the procedure well with no complications. The patient was awoken from anesthesia and taken to the Post Anesthesia Care Unit in good stable condition. DISPOSITION The patient will be discharged home after medical stabilization. She is to followup with urology in clinic in 1-2 weeks for definitive stone management. Yessi Munoz M.D. IVELISSE/LUANNE /8:12 PM /1:50 PM MTDD
--- NOTE | 2016-07-20 17:54 | HHI.PR ---
Addendum to Inpatient Note Addendum Reason: Additional Documentation Additional Information - Patient underwent a difficult but successful stent placement. She is discharge home with pain medication to follow up outpatient with urology. Discharge home in good condition Follow up with urology in 1 week Diet: Regular as tolerated Activity: Regular as tolerated Meds: Per med rec. Fadi Caraballo MD Jul 20, 2016 17:54
== END 2016-07-20 13:54 | disposition home or self-care (01) | DRG 694 ==
LOC: PHED 20:41 → PHEDA 07-19 04:17 → PHEDH 07-19 08:16 → HSDI 07-19 15:18 → N04A 07-19 18:26
PROVIDERS: ADMIT Family Medicine; ATTEND Family Medicine
PROC: BT1F1ZZ Fluoroscopy of Left Kidney, Ureter and Bladder using Low Osmolar Contrast (ICD-10-PCS; 2016-07-19)
PROC: 0T778DZ Dilation of Left Ureter with Intraluminal Device, Via Natural or Artificial Opening Endoscopic (ICD-10-PCS; principal; 2016-07-19 19:09)
DX: N13.2 Hydronephrosis with renal and ureteral calculous obstruction (principal); K21.9 Gastro-esophageal reflux disease without esophagitis; Z85.820 Personal history of malignant melanoma of skin; Z87.442 Personal history of urinary calculi; M19.90 Unspecified osteoarthritis, unspecified site
CPT/HCPCS: 74177; 74420; 80048; 80053; 81001; 83605; 83690; 85025; 87086; 93005; 96365; 96375; 96376; C1769; C2617; J0690; J0696; J1170; J1885; J1956; J2270; J2405; J3010; J7030; J7120; Q9967